=== PATIENT | female | born 1945 ===

== ENCOUNTER 2020-10-30 11:00 | Inpatient (IN) | payer OTHER ==
[~2020-10-30] VITALS: Ht 154.9 cm; Wt 62.1 kg
[2020-10-30] MEDS ORDERED: SIMVASTATIN20 MG PO (14:56)
[2020-10-30] MEDS ORDERED: METFORMIN HCL500 M3 PO (14:56)
[2020-10-30] MEDS ORDERED: LIPOFEN150 MG PO (14:56)
[2020-10-30] MEDS ORDERED: SYNTHROID50 MCG PO (14:56)
[2020-10-30] MEDS ORDERED: GABAPENTIN100 M2 PO (14:57)
[2020-10-30] MEDS ORDERED: MOBIC7.5 MG PO (14:57)
[2020-11-06] MEDS ORDERED: AMOX-CLAV 875-1 EAC1 PO (07:47)
[2020-11-06] MEDS ORDERED: NEURONTIN800 MG PO (07:47)
[2020-11-06] MEDS ORDERED: DIAZEPAM5 MG PO (07:47)
[2020-11-06] MEDS ORDERED: PERCOCET 5-3251 EACH PO (07:47)
[2020-11-06] MEDS ORDERED: COLACE100 MG PO (07:47)
[2020-11-06] MEDS ORDERED: MEDROLPACK PO (07:47)
== END 2020-11-07 14:41 | disposition home or self-care (01) | DRG 455 ==
LOC: ADM 11:00 → EDSTATUS 11:00 → O/R 11-06 04:30 → PED 11-06 04:30 → O/R 11-06 10:15 → PED 11-06 11:33
PROVIDERS: ADMIT Orthopaedic Surgery Orthopaedic Surgery of the Spine; ATTEND Orthopaedic Surgery Orthopaedic Surgery of the Spine
PROC: 0SG10J1 Fusion of 2 or more Lumbar Vertebral Joints with Synthetic Substitute, Posterior Approach, Posterior Column, Open Approach (ICD-10-PCS; 2020-11-06)
PROC: 0SG00A0 Fusion of Lumbar Vertebral Joint with Interbody Fusion Device, Anterior Approach, Anterior Column, Open Approach (ICD-10-PCS; principal; 2020-11-06 10:15)
DX: M48.062 Spinal stenosis, lumbar region with neurogenic claudication (principal); M41.56 Other secondary scoliosis, lumbar region; E03.8 Other specified hypothyroidism; E11.9 Type 2 diabetes mellitus without complications